=== PATIENT | male | born 2000 | race African-American/Black ===

== ENCOUNTER 2018-02-07 17:14 | Emergency (ER) | payer MEDICAID ==
[~2018-02-07] VITALS: Ht 185.4 cm; Wt 64.0 kg
[2018-02-07 18:12] VITALS: BP 146/75
[2018-02-07] MEDS ORDERED: CARI250T7 PO (18:15)
[2018-02-07] MEDS ORDERED: HYDR-4009 PO (18:15)
== END 2018-02-07 22:00 | disposition left against medical advice (07) ==
LOC: ER 21:03
DX: M79.642 Pain in left hand (principal); M79.641 Pain in right hand; G89.29 Other chronic pain; M19.90 Unspecified osteoarthritis, unspecified site
CPT/HCPCS: 99281